=== PATIENT | female | born 1960 | race African-American/Black ===

== ENCOUNTER → 2017-09-08 | Day surgery (SDC) | payer BC ==
[~2017-09-08] MED LIST: AMLO2.5T PO; CYCL10TA2 PO; ETOD500T PO; IV RINGERS,LACTATED 1000ML 1,000 ML IV SCH; LIDOCAINE 2% PF Vial for OR 5 ML VIAL. ONE; LISI-334 PO; OXYC10TA PO; PROPOFOL 40 ML IV ONE
[2017-09-08 10:35] VITALS: BP 120/77
--- NOTE | 2017-09-09 13:38 | PATHOLOGY ---
PATHOLOGY REPORT * * * * * * * * FINAL DIAGNOSIS: Colon biopsy, sigmoid colon polyp: - Hyperplastic polyp. (JPM:rossana; 09/09/2017) COMMENT: There are no adenomatous changes or evidence of malignancy. REPORT ELECTRONICALLY SIGNED BY: Rhett Sweet M.D. DATE/TIME: 09/09/2017 13:36 * * * * * * * * GROSS PATHOLOGY: Received in formalin labeled "Russel Tijerina and sigmoid colon polyp biopsy," is a segment of antunez soft tissue measuring 0.4 x 0.2 cm in maximum dimension. The specimen is submitted entirely in cassette A1. (SWS; 09/08/2017) INITIAL CPT CODE(S): A; 08274 Professional services performed by [employer] [place] [address] Technical services performed by [facility] at [address] [place] [address] [address] [address]. SPECIMEN(S) RECEIVED: A.Sigmoid polyp biopsy CLINICAL HISTORY: Screening PATIENT: RUSSEL TIJERINA /AGE: 705/02/1960 (Age: 57) PATIENT #: [id number] ALT CASE #: SPECIMEN COLLECTION DATE: 09/08/2017 SPECIMEN RECEIVED DATE: 09/08/2017 [facility] - [id number] [place] [address] - PHONE: [phone] * * * END OF REPORT * * *
== END | disposition home or self-care (01) ==
LOC: SURG 08:47
PROVIDERS: ATTEND Internal Medicine Gastroenterology
DX: Z12.11 Encounter for screening for malignant neoplasm of colon (principal); D12.5 Benign neoplasm of sigmoid colon; K64.0 First degree hemorrhoids; I10 Essential (primary) hypertension; M19.90 Unspecified osteoarthritis, unspecified site; D57.1 Sickle-cell disease without crisis; Z98.890 Other specified postprocedural states
CPT/HCPCS: 45380; 88305; J2704; J2001